=== PATIENT | female | born 1940 | race Caucasian/White ===

== ENCOUNTER 2021-11-21 11:52 | Emergency (ER) | payer MEDICARE, SELFPAY ==
[2021-11-21 11:54] VITALS: BP 163/86; PULSE 78; RESP 15; TEMP 36.4; O2SAT 93; BMI 30.2
--- NOTE | 2021-11-21 11:55 | XR_ITS ---
WS: [id number] Exam: XR chest 1V portable [id number] Date/Time of Exam: 11/21/2021 11:55 AM Reason For Exam: light-headedness No priors. Findings: The lungs are clear and fully expanded. Costophrenic angles are sharp. No infiltrates. Bronchovascula r relief appears normal. Cardiac silhouette is unremarkable. Bony elements are intact. XR/XR chest 1V portable [id number] IMPRESSION: Unremarkable chest radiograph.
--- NOTE | 2021-11-21 12:23 | ED_ITS ---
HPI - General Adult General: Chief complaint: Dizziness Stated complaint: CONSTANT DIZZINESS Time Seen by Provider: 11/21/21 11:55 History of Present Illness: Patient is an 81-year-old female with history of hypothyroidism presenting to the emergency room with 2 weeks of vertigo sympt oms. Patient tells me that she woke up 2 weeks ago and began developing vertical symptoms. Patient said the symptom has been constant and has affected her walking and balance. Patient denies any lightheadedness, chest pain, shortness of palpitation focal neurological weakness, slurring of speech, facial droop difficulty with language or any other issues. Patient says the symptoms been persistent has not relieved for last 2 weeks. Patient denies any acute vision changes. She tells me in the past that she has had to go performed however this is the first time her vertigo has been persistent. Of note, patient stopped taking her Synthroid 2 weeks ago because she thinks that this is causing her symptoms. Patient still noticed that she had persistent vertigo- like symptoms despite not taking her Synthroid. Patient resumed her Synthroid earlier today. Onset:2 weeks ago Duration:2 weeks Location: home Severity:moderate Associated symptoms: Deny chest pain, dyspnea, nausea, rash, palpitations or vomiting Review of Systems Const: Denies: fever(s) or chills Eyes: Denies: change in vision ENMT: Denies: mouth pain Card: Denies: chest pain or palpitations Resp: Denies: dyspnea or non-productive cough GI: Denies: abdominal pain, nausea, vomiting or diarrhea : Denies: dysuria Musc: Denies: extremity pain Skin/Breast: Denies: rash or new lesions Neuro: Reports: other (+vertigo/gait instability); Denies: weakness in extremities Psych: Reports: other (Normal mood) Chase/Lymph: Denies: easy bruising PFSH ED PFSH: Medical History Hypothyroidism Social History Smoking and tobacco status: never smoked Alcohol intake: never Substance/Drug Use: never Physical Exam Const: COMMON NORMALS: alert HENMT: COMMON NORMALS: atraumatic HEAD & SCALP: atraumatic MOUTH: moist mucous membranes not abnormal Eye: COMMON NORMALS: EOMs intact bilaterally and conjunctivae normal CONJUNCTIVA: Yes conjunctivae normal OTHER: +bidirectional nystagmus Neck/C-Spine: COMMON NORMALS: full ROM and supple Resp: COMMON NORMALS: normal respiratory effort and clear to auscultation bilaterally AUSCULTATION: clear to auscultation bilaterally Cardio: COMMON NORMALS: regular rate RATE: regular rate GI: COMMON NORMALS: Soft to palpation and non-tender PALPATION: Yes Soft to palpation Extremity: COMMON NORMALS: full ROM Neuro: SENSORIUM/ORIENTATION: Yes alert OTHER: Mental status? Awake, alert, and oriented to self, year, month, location, and situation.? Following simple axial and appendicular commands.? Has appropriate fund of knowledge, comprehension, and insight.? Able to recall and understands pertinent aspects of medical history and current treatment status.? ? Language? Speech is fluent without word-finding difficulties.? Intact naming, expression, tour leader, and repetition.? ? Cranial nerves? 2,3,4,6: PERRL, EOMI with no nystagmus. 5: Intact sensation to light touch, symmetric? 7: Smile symmetrical, no facial droop.? 8: Hearing grossly intact.? 9,10: Normal palate movement.? 11: Normal strength in trapezius bilaterally 12: Tongue protrudes midline.? ? Motor examination? Normal bulk & tone. Strength as follows (R/L): Delts (5/5), Biceps (5/5), Triceps (5/5), Wrist ext (5/5), hip flexors (5/5), plantarflexors (5/5), dorsiflexors (5/5). ? Sensation? Light Touch: Grossly intact and equal in upper and lower extremities bilaterally? Romberg: Negative.? Distal joint position sense intact ? Coordination? Macusl-wr-ceem-finger movements intact without dysmetria or past-pointing.? Rapid fingertaps: preserved amplitude without decriment.? No tremor, myoclonus or truncal ataxia.? ? Gait/stance? +mildly unsteady gait, able to ambulate and balance Psych: COMMON NORMALS: speech normal SPEECH: Yes normal speech MOOD & AFFECT: Yes euthymic mood Course Vital Signs: Vital signs: Vital Signs Temperature 97.6 F 11/21/21 11:54 Pulse Rate 78 11/21/21 11:54 Respiratory Rate 15 05/25/22 11:54 Blood Pressure 163/86 11/21/21 11:54 Pulse Oximetry 93 11/21/21 11:54 MDM - General Adult Medical Decision Making 81-year-old female with a history hypothyroidism presenting to the emergency room for evaluation of persistent vertigo x2 weeks. Physical exam, patient has bidirectional nystagmus. Patient has unsteady gait on physical exam. Rest of neuro exam within normal limit. Patient reports vertigo-like sensation upon standing up. CT head negative for any acute finding. MRI negative for any signs of posterior fossa pathology. MRA angio head/neck negative for any acute findings. I have given patient follow up with our major case detective to be seen by our outpatient ENT for vertigo symptoms. Patient aware of a call from our major case detective to schedule for appointment(s) and verbalizes understanding of the importance of following up. She received meclizine fluids and is now able to ambulate without any difficulty. Patient still has mild vertical symptoms symptoms. Rx meclizine PRN for vertigo Disposition: Discharge. Patient counseled regarding diagnostic impression, last atment plan. Patient given ED strict return precautions to return for continuation, worsening, or development of new symptoms. Instructed to f/u w/ PCP regarding symptoms today. Patient verbalized understanding. Lab Data : 11/21/21 12:48 11/21/21 12:48 Radiology Impressions Chest X-Ray 11/21/21 11:55 IMPRESSION: Unremarkable chest radiograph. Head MRI 11/21/21 12:40 IMPRESSION: 1. No acute infarct. 2. Mild atrophy and ventriculomegaly. 3. Mild small vessel ischemic disease. Head MRA 11/21/21 12:40 IMPRESSION: Normal MRA [place]. Laboratory Results WBC 10.6 10^3/uL (4.0-10.0) H 11/21/21 12:48 RBC 5.05 10^6/uL (4.1-5.3) 11/21/21 12:48 Hgb 15.6 g/dL (11.5-15.3) H 11/21/21 12:48 Hct 45.2 % (37.0-47.0) 11/21/21 12:48 MCV 89.5 fl (81-99) 11/21/21 12:48 MCH 30.9 pg (28.0-34.0) 11/21/21 12:48 MCHC 34.5 g/dL (30.0-36.0) 11/21/21 12:48 RDW 12.4 % (12.1-15.1) 11/21/21 12:48 Plt Count 362 10^3/cmm (130-400) 11/21/21 12:48 MPV 10.2 fL (7.4-10.4) 11/21/21 12:48 Neut % (Auto) 72.4 % 11/21/21 12:48 Lymph % (Auto) 20.9 % 11/21/21 12:48 [place] % (Auto) 5.2 % 11/21/21 12:48 Eos % (Auto) 0.9 % 11/21/21 12:48 Baso % (Auto) 0.4 % 11/21/21 12:48 Neut # (Auto) 7.69 10^3/uL (1.8-7.7) 11/21/21 12:48 Lymph # (Auto) 2.2 10^3/uL (0.8-4.8) 11/21/21 12:48 [place] # (Auto) 0.6 10^3/uL (0.2-0.9) 11/21/21 12:48 Eos # (Auto) 0.1 10^3/uL (0.0-0.8) 11/21/21 12:48 Baso # (Auto) 0.0 10^3/uL (0.0-0.1) 11/21/21 12:48 Nucleated RBC % (auto) 0 % 11/21/21 12:48 Nucleated RBCs # 0.0 /100WBC 11/21/21 12:48 Sodium 139 mmol/L (136-145) 11/21/21 12:48 Potassium 4.0 mmol/L (3.5-5.1) 11/21/21 12:48 Chloride 105 mmol/L (98-107) 11/21/21 12:48 Carbon Dioxide 19 mmol/L (22-29) L 11/21/21 12:48 Anion Gap 19.0 (5-19) 11/21/21 12:48 BUN 10 mg/dL (8-23) 11/21/21 12:48 Creatinine 0.7 mg/dL (0.5-0.9) 11/21/21 12:48 GFR Calculation Not Reportable 11/21/21 12:48 Glucose 99 mg/dL (65-115) 11/21/21 12:48 Calculated Osmolality 287 mOsm/kg (285-295) 11/21/21 12:48 Calcium 9.4 mg/dL (8.5-10.5) 11/21/21 12:48 Total Bilirubin 0.4 mg/dL (0.15-1.2) 11/21/21 12:48 AST 17 U/L (0-32) 11/21/21 12:48 ALT 13 U/L (0-33) 11/21/21 12:48 Alkaline Phosphatase 136 IU/L (35-105) H 11/21/21 12:48 Troponin T Baseline 12 ng/L (0-10) H 11/21/21 12:48 Troponin T 120 Minute 12.34 ng/L (0-10) H 11/21/21 14:51 Delta Troponin T 0.34 ABS# (0-10) 11/21/21 14:51 Total Protein 6.6 g/dL (6.6-8.7) 11/21/21 12:48 Albumin 4.0 g/dL (3.5-5.2) 11/21/21 12:48 Globulin 2.6 g/dL (1.3-4.6) 11/21/21 12:48 Lipase 30 U/L (13-60) 11/21/21 12:48 TSH 4.20 uIU/mL (0.27-4.20) 11/21/21 12:48 Free T4 1.20 ng/dL (0.82-1.77) 11/21/21 12:48 Imaging Data Other Imaging: Radiologist's impression: [facility] [address] [place] [address] Magnetic Resonance Report Signed Patient: Anamaria Wolf Unit #: [id number] : 1940 Age/Sex: 81 / F ADM Date: 11/21/21 Loc: ER Room/Bed: Attending Dr: Ordering Provider/Ordering MD: Samson Prado MD Date of Service: 11/21/21 Procedure(s): MR angio head wo con [id number] Accession Number(s): [id number] Report Number: [id number] WS: [id number] MRA ANGIOGRAPHY [place] HISTORY: vertigo COMPARISON: None available. TECHNIQUE: 3-D MR angiography is performed of the [place]. All images are reviewed including source images. Distal vertebral and basilar arteries are intact with no significant stenosis or plaque. Posterior cerebral arteries are normal course and caliber. Posterior com municating arteries are both patent. Intracranial portion of the internal carotid arteries are normal course and caliber. No significant atherosclerosis, stenosis or aneurysm identified. Middle and anterior cerebral arteries are both patent with no significant disease. Anterior communicating artery is also normal. MR/MR angio head wo con [id number] IMPRESSION: ? Normal MRA [place]. ? Dictated By: Ynes Rogers DO Signed By: Ynes Rogers DO Signed Date/Time: 11/21/21 1414 DD/ [address] [place] [address] Magnetic Resonance Report Signed Patient: Anamaria Wofl Unit #: [id number] : 1940 Age/Sex: 81 / F ADM Date: 11/21/21 Loc: ER Room/Bed: Attending Dr: Ordering Provider/Ordering MD: Samson Prado MD Date of Service: 11/21/21 Procedure(s): MR head con* [id number] Accession Number(s): [id number] Report Number: [id number] WS: [email or web address] MRI BRAIN WITHOUT CONTRAST HISTORY: vertigo symptoms constant COMPARISON: None available. TECHNIQUE: Diffusion imaging, multiplanar T1, T2 and FLAIR imaging obtained. No acute infarct. Diffusion-weighted images are normal. Numerous T2 and FLAIR signal hyperintensities in the periventricular white matter. Both patchy and confluent. Consistent with mild chronic small vessel ischemic disease. No hemorrhage. No inferior displacement of cerebellar tonsils. Mild atrophy. No chronic infarct. Very mild ventriculomegaly on the basis of atrophy. No inferior displacement of cerebellar tonsils. The sella turcica and pituitary gland are unremarkable. Dural venous sinuses and [place] demonstrate no abnormality on this unenhanced studies. Paranasal sinuses: Clear. Mastoid air cells: Normal. Calvarium and scalp: Intact. MR/MR head wo con* [id number] IMPRESSION: ? 1.? No acute infarct. 2.? Mild atrophy and ventriculomegaly. 3.? Mild small vessel ischemic disease. ? ? Dictated By: Ynes Rogers DO Signed By: Ynes Rogers DO Signed Date/Time: 11/21/21 1418 DD/ [address] [address] XRay Report Signed Patient: Anamaria Wolf Unit #: [id number] : 1940 Age/Sex: 81 / F ADM Date: 11/21/21 Loc: ER Room/Bed: Attending Dr: Ordering Provider/Ordering MD: Samson Prado MD Date of Service: 11/21/21 Procedure(s): XR chest 1V portable [id number] Accession Number(s): [id number] Report Number: [id number] WS: [email or web address] Exam: XR chest 1V portable [id number] Date/Time of Exam: 11/21/2021 11:55 AM Reason For Exam: light-headedness No priors. Findings: The lungs are clear and fully expanded. Costophrenic angles are sharp. No infiltrates. Bronchovascular relief appears normal. Cardiac silhouette is unremarkable. Bony elements are intact. ? XR/XR chest 1V portable [id number] IMPRESSION: Unremarkable chest radiograph. ? ? Dictated By: Michael Longoria DO Signed By: Michael Longoria DO Signed Date/Time: 11/21/21 1230 DD/ 1229 Discharge Plan Discharge Patient Disposition: Home Clinical Impression: Vertigo Condition: Stable Prescriptions: New meclizine 50 mg tablet 50 mg PO DAILY PRN (Reason: vertigo) 10 Days Qty: 10 0RF Discharge Orders: Discharge ED (Routine); Ordered 11/21/21 Ordered By: Samson Prado Discharge Diet: Advance as tolerated Discharge Activity: Increase activity as tolerated Patient Instructions: Vertigo (ED) Activity Restrictions/Additional Instructions: Our major case detective will have you follow-up with ENT in the next few days. You would be expected to have a phone call with our major case detective who will put you on the schedule. You can expect a call from us in the next 2-3 days. If you don't hear from us, call us back in the emergency room at [phone]. Coding Level of Care Code ED Health Care Assistant for Constance [place] Exam Comprehensive
--- NOTE | 2021-11-21 12:40 | MRR_ITS ---
PROCEDURE INFORMATION: Exam: MRA Neck Without Contrast Exam date and time: 11/21/2021 1:53 PM Age: 81 years old Clinical indication: Vertigo TECHNIQUE: Imaging protocol: Magnetic resonance angiography of the neck without contrast. Tkji-wy-xtpnmu (TOF) technique was utilized for this exam. COMPARISON: MR angio head wo con [id number] 11/21/2021 1:29 PM FINDINGS: Right common carotid artery: No stenosis. No dissection or occlusion. Right internal carotid artery: No stenosis of the extracranial segment. No dissection or occlusion. Right external carotid artery: No stenosis. No dissection or occlusion of the origin. Right vertebral artery: No stenosis. No dissection or occlusion. Left common carotid artery: No stenosis. No dissection or occlusion. Left internal carotid artery: No stenosis of the extracranial segment. No dissection or occlusion. Left external carotid artery: No stenosis. No dissection or occlusion of the origin. Left vertebral artery: No stenosis. No dissection or occlusion. MR/MR angio neck wo con [id number] IMPRESSION: No stenosis or occlusion. REFERENCES: NASCET CRITERIA. The degree of internal carotid artery stenosis is based on NASCET criteria. Normal is no stenosis. Mild is less than 50% stenosis. Moderate is 50-69% stenosis. Severe is 70% to 99% stenosis. Total occlusion is no detectable patent lumen.
--- NOTE | 2021-11-21 12:40 | MR_ITS ---
WS: [id number] MRA ANGIOGRAPHY [place] HISTORY: vertigo COMPARISON: None available. TECHNIQUE: 3-D MR angiography is performed of the [place]. All images are reviewed including source images. Distal vertebral and basilar arteries are intact with no significant stenosis or plaque. Posterior ce rebral arteries are normal course and caliber. Posterior communicating arteries are both patent. Intracranial portion of the internal carotid arteries are normal course and caliber. No significant a therosclerosis, stenosis or aneurysm identified. Middle and anterior cerebral arteries are both paten t with no significant disease. Anterior communicating artery is also normal. MR/MR angio head wo con [id number] IMPRESSION: Normal MRA [place].
--- NOTE | 2021-11-21 12:40 | MR_ITS ---
WS: [id number] MRI BRAIN WITHOUT CONTRAST HISTORY: vertigo symptoms constant COMPARISON: None available. TECHNIQUE: Diffusion imaging, multiplanar T1, T2 and FLAIR imaging obtained. No acute infarct. Diffusion-weighted images are normal. Numerous T2 and FLAIR signal hyperintensities in the periventricular white matter. Both patchy and confluent. Consistent with mild chronic small v essel ischemic disease. No hemorrhage. No inferior displacement of cerebellar tonsils. Mild atrophy. No chronic infarct. Very mild ventriculomegaly on the basis of atrophy. No inferior displacement of cerebellar tonsils. The sella turcica and pituitary gland are unremarkabl e. Dural venous sinuses and [place] demonstrate no abnormality on this unenhanced studies. Paranasal sinuses: Clear. Mastoid air cells: Normal. Calvarium and scalp: Intact. MR/MR head wo con* [id number] IMPRESSION: 1. No acute infarct. 2. Mild atrophy and ventriculomegaly. 3. Mild small vessel ischemic disease.
[2021-11-21 12:57] LABS: Basophils % 0.4 %; Eosinophils # 0.1 10^3/uL (0.0-0.8); Eosinophils % 0.9 %; Hematocrit 45.2 % (37.0-47.0); Hemoglobin 15.6 g/dL (11.5-15.3); Lymphocytes # 2.2 10^3/uL (0.8-4.8); Lymphocytes % 20.9 %; Mean Corpuscular HGB Conc 34.5 g/dL (30.0-36.0); Mean Corpuscular Hemoglobin 30.9 pg (28.0-34.0); Mean Corpuscular Volume 89.5 fl (81-99); Mean Platelet Volume 10.2 fL (7.4-10.4); Monocytes # 0.6 10^3/uL (0.2-0.9); Monocytes % 5.2 %; Neutrophils # 7.69 10^3/uL (1.8-7.7); Neutrophils % 72.4 %; Nucleated Red Blood Cells % 0 %; Platelet Count 362 10^3/cmm (130-400); Red Blood Count 5.05 10^6/uL (4.1-5.3); Red Cell Distribution Width 12.4 % (12.1-15.1); White Blood Count 10.6 10^3/uL (4.0-10.0)
[2021-11-21 13:24] LABS: Troponin(5th) Baseline 12 ng/L (0-10)
[2021-11-21 13:31] LABS: Alanine Aminotransferase 13 U/L (0-33); Alkaline Phosphatase 136 IU/L (35-105); Aspartate Amino Transferase 17 U/L (0-32); Blood Urea Nitrogen 10 mg/dL (8-23); Calcium 9.4 mg/dL (8.5-10.5); Carbon Dioxide 19 mmol/L (22-29); Chloride 105 mmol/L (98-107); Creatinine Clr Calc Pharmacy 51.3518; Globulin 2.6 g/dL (1.3-4.6); Glucose 99 mg/dL (65-115); Lipase 30 U/L (13-60); Osmolality Calculated 287 mOsm/kg (285-295); Sodium 139 mmol/L (136-145); Total Bilirubin 0.4 mg/dL (0.15-1.2); Total Protein 6.6 g/dL (6.6-8.7)
[2021-11-21] MEDS: meclizine 25 mg tablet 50 MG PO (14:39)
[2021-11-21] MEDS: sodium chloride 0.9% 500 ML IV (14:40)
[2021-11-21 15:15] LABS: Troponin 5 2HR 12.34 ng/L (0-10)
[2021-11-21 15:18] LABS: Troponin 5 2HR Delta 0.34 ABS# (0-10)
--- NOTE | 2021-11-21 15:35 | PC.NURSE ---
Notified Dr. Prado of blood pressure, he states he will order medication for her blood pressure. Dr. Prado states that wait after medication has been given until blood pressure comes down to a better reading. Patient blood pressure 191/80.
[2021-11-21 15:41] VITALS: BP 191/80; PULSE 80; RESP 14; O2SAT 97
[2021-11-21] MEDS: amlodipine 5 mg Tablet PO (15:42)
--- NOTE | 2021-11-21 16:30 | PC.NURSE ---
Patient blood pressure 178/89, notified Dr. Prado, he states patient may now go home. Patient getting dressed, no distress noted. ambulating out of er with son with steady gait.
[2021-11-21 16:31] VITALS: BP 178/89; PULSE 86; RESP 14; O2SAT 97
--- NOTE | 2021-11-21 17:55 | ECG_ITS ---
[facility] Test Date: 2021-11-21 Pat Name: Anamaria Wolf Department: Room: Gender: Female Manager Of Clinical: : 1940 Requested By: Samson Prado Order Number: [id number] Marie MD: Ramona Killian M.D. Measurements Intervals [place] Rate: 81 P: 62 IN: 152 QRS: 24 QRSD: 95 T: 53 QT: 361 QTc: 419 Interpretive Statements SINUS RHYTHM WITH FREQUENT VENTRICULAR PREMATURE COMPLEXES ABNORMAL RHYTHM ECG No previous ECG available for comparison Electronically Signed On 11-21-2021 22:08:15 CDT by Ramona Killian M.D. [email or web address]
--- NOTE | 2021-11-22 11:41 | DCPLANNER ---
Addendum entered by Madai Payton 12/04/21 08:53: Patient had a follow up appointment scheduled for 11.28.21 with ENT - patient did attend appointment. Addendum entered by Madai Payton 11/25/21 10:23: Patient has a follow up appointment scheduled for Sunday, November 28, 2021 at 2:[address] Peraza at ENT. Clinic will call patient with appointment information. Original Note: shipping receiving manager had message to schedule a follow up appointment for patient with ENT. shipping receiving manager sent patients information to the front office staff at ENT. Patients information will be printed and reviewed. Clinic will call patient with appointment information.
== END 2021-11-21 16:32 | disposition home or self-care (01) ==
PROVIDERS: Emergency Provider Emergency Medicine
DX: R42 Dizziness and giddiness (principal); E03.9 Hypothyroidism, unspecified; G93.89 Other specified disorders of brain
CPT/HCPCS: 70544; 70547; 70551; 71045; 80053; 83690; 84439; 84443; 84484; 85025; 93005; 99285; J7040; J8597

== ENCOUNTER → 2021-11-28 13:41 | Outpatient (BNVA) | payer MEDICARE, SELFPAY | PROVIDERS: Referring Provider Emergency Medicine; Visit Provider Otolaryngology | DX: M95.0 Acquired deformity of nose (principal); J34.2 Deviated nasal septum; H93.19 Tinnitus, unspecified ear; R42 Dizziness and giddiness | CPT/HCPCS: 99204 ==

== ENCOUNTER 2021-12-03 06:00 | Outpatient (RCR) | payer MEDICARE, SELFPAY | END 2021-12-27 23:59 | disposition home or self-care (01) | LOC: SPT 06:00 | PROVIDERS: Referring Provider Otolaryngology; Visit Provider Otolaryngology | DX: R42 Dizziness and giddiness (principal); H93.19 Tinnitus, unspecified ear | CPT/HCPCS: 95992; 97112; 97162; 97535 ==

== ENCOUNTER → 2022-01-09 14:02 | Outpatient (BNVA) | payer MEDICARE, SELFPAY | PROVIDERS: Referring Provider Otolaryngology; Visit Provider Nurse Practitioner | DX: E03.9 Hypothyroidism, unspecified (principal) | CPT/HCPCS: 99202; 99203 ==